=== PATIENT | male | born 1950 | race Two or more races ===

== ENCOUNTER 2018-06-03 11:58 | Emergency (ER) | payer MEDICARE, BC, OTHER, MEDICAID ==
[2018-06-03] MEDS ORDERED: DILTIAZEM-D5W 125MG/125ML DRIP 125 ML IV (12:16)
[2018-06-03 12:23] LABS: ADD MAN DIFF? NO
[2018-06-03 12:26] LABS: BASOPHIL # 0.1 10^3/ul (0.0-0.1); BASOPHILS % 0.7 % (0.0-2.0); EOSINOPHILS # 0.1 10^3/ul (0.0-0.5); EOSINOPHILS % 1.2 % (0.0-7.0); HEMATOCRIT 48.3 % (42.0-52.0); HEMOGLOBIN 15.5 g/dl (14.0-18.0); LYMPHOCYTES # 3.1 10^3/ul (0.8-2.9); LYMPHOCYTES % 30.5 % (15.0-51.0); MEAN CORPUSCULAR HEMOGLOBIN 29.6 pg (29.0-33.0); MEAN CORPUSCULAR HGB CONC 32.1 g/dl (32.0-37.0); MEAN CORPUSCULAR VOLUME 92.2 fl (82.0-101.0); MEAN PLATELET VOLUME 11.2 fl (7.4-10.4); MONOCYTE # 0.9 10^3/ul (0.3-0.9); MONOCYTES % 8.5 % (0.0-11.0); NEUTROPHIL # 6.1 10^3/ul (1.6-7.5); NEUTROPHILS % 58.8 % (39.0-77.0); PLATELET COUNT 197 10^3/UL (140-415); RED BLOOD COUNT 5.24 10^6/ul (4.70-6.10)
[2018-06-03 12:26] LABS: WHITE BLOOD COUNT 10.3 10^3/ul (4.8-10.8)
[2018-06-03] MEDS: SOD CHLORIDE 0.9% 1,000 ML IV (12:29)
[2018-06-03] MEDS: DILTIAZEM 25 MG INJ IV (12:29)
[2018-06-03 12:43] LABS: ANION GAP 14 (8-16); BLOOD UREA NITROGEN 16 mg/dl (7-20); CALCIUM 9.3 mg/dl (8.4-10.2); CARBON DIOXIDE 23 mmol/L (21-31); CHLORIDE 111 mmol/L (97-110); CREATININE 1.07 mg/dl (0.61-1.24); GLUCOSE 112 mg/dl (70-220); MAGNESIUM 1.7 mg/dl (1.7-2.5); POTASSIUM 4.5 mmol/L (3.5-5.1); SODIUM 143 mmol/L (135-144)
[2018-06-03] MEDS: MAGNESIUM SULFATE 2 GM/50 ML 50 ML IVPB (12:45)
[2018-06-03 13:01] LABS: FREE THYROXINE INDEX (Calc) 3.56 ug/ml (0.65-3.89); T4 (THYROXINE) 12.7 ug/dl (5.5-11.0)
[2018-06-03 14:20] LABS: INR 1.04; PROTIME 13.7 Sec (11.9-14.9); PT RATIO 1.1
[2018-06-03 14:21] LABS: PARTIAL THROMBOPLASTIN TIME 31.5 Sec (25.0-35.0)
[2018-06-03] MEDS ORDERED: HYDROCODONE/APAP (5/325) TAB PO (14:30)
[2018-06-03] MEDS ORDERED: morphine 2 MG INJ IV (14:30)
[2018-06-03] MEDS ORDERED: ONDANSETRON 4 MG INJ IV (14:30)
[2018-06-03] MEDS ORDERED: MAGNESIUM HYDROXIDE 30ML CUP PO (14:30)
[2018-06-03] MEDS ORDERED: NACL 0.9% 3 ML SYG IV (14:30)
[2018-06-03] MEDS ORDERED: BISACODYL (EC) 5 MG TAB PO (14:30)
[2018-06-03] MEDS ORDERED: LORAZEPAM 0.5 MG TAB PO (14:30)
[2018-06-03] MEDS ORDERED: ACETAMINOPHEN 325 MG TAB PO (14:30)
[2018-06-03] MEDS ORDERED: DOCUSATE SODIUM 100 MG CAP PO (14:30)
[2018-06-03 14:33] LABS: B-TYPE NATRIURETIC PEPTIDE 919 PG/ML (0-125)
[2018-06-03] MEDS: DILTIAZEM (CD) 180 MG CAP PO (15:00)
[2018-06-03] MEDS ORDERED: FAMOTIDINE 20 MG INJ IV (21:00)
[2018-06-03] MEDS ORDERED: HEPARIN 5,000 UNIT/0.5 ML VIAL SC (22:00)
== END 2018-06-03 15:20 | disposition home or self-care (01) ==
LOC: E/R 11:58
DX: I47.1 Supraventricular tachycardia (principal); I10 Essential (primary) hypertension; R07.9 Chest pain, unspecified
CPT/HCPCS: 36415; 71045; 80048; 83735; 83880; 84436; 84443; 84479; 84484; 85025; 85610; 85730; 93005; 96374; 96375; 99285-25